=== PATIENT | male | born 1940 | race Two or more races ===

== ENCOUNTER 2023-01-25 13:45 | Inpatient (IN) | payer MEDICAID ==
[~2023-01-25] VITALS: Ht 170.2 cm; Wt 70.7 kg
[2023-01-25] VITALS (30 sets, daily range): BP systolic 100–136; BP diastolic 26–64; PULSE 102–121; RESP 21–30; TEMP 96.8–96.9; O2SAT 88–99
[2023-01-25] MEDS ORDERED: cefTRIAXone 1GM/50ML D5W 50 ML IV ONE (14:15)
[2023-01-25] MEDS ORDERED: SODIUM CHLORIDE 0.9% 1,000 ML IV ONE ×3 (14:15→15:15)
[2023-01-25] MEDS ORDERED: AZITHROMYCIN 500MG/ 250ML 250 ML IV ONE (14:15)
[2023-01-25 14:42] LABS: Mean Corpuscular Hgb Conc. 29.2 g/dL (32.0-36.0); Red Cell Distribution Width 17.4 % (11.8-14.3)
[2023-01-25 14:44] LABS: Hematocrit 56.5 % (41.0-53.0); Hemoglobin 16.5 g/dL (13.5-17.5); Mean Corpuscular Volume 99.3 fL (80.0-100.0); Red Blood Cells 5.69 10^6/uL (4.5-5.90)
[2023-01-25 14:45] LABS: White Blood Cell 31.7 10^3/uL (4.4-10.8)
[2023-01-25 14:46] LABS: Basophils % (manual) 0 (0.0-2.0); Blast Cells 0; Eosinophils % (manual) 0 (0-7); Metamyelocytes % 0; Myelocytes % 0; Promyelocytes % 0; Reactive Lymphocytes 0
[2023-01-25 14:58] LABS: Alanine Aminotransferase 12 U/L (7-40); Albumin 4.2 g/dL (3.2-4.8); Alkaline Phosphatase 113 U/L (46-116); Anion Gap 31.00001 (5-15); Aspartate Aminotransferase 12 U/L (13-40); BUN/Creatinine Ratio 15.8 (10.0-20.0); Bilirubin, Total 0.4 mg/dL (0.2-1.0); Blood Urea Nitrogen 72 mg/dL (9-23); Calcium 9.9 mg/dL (8.5-10.1); Chloride 100 mmol/L (98-107); Lactic Acid w/Reflex 6.8 mmol/L (0.4-2.0); Sodium 141 mmol/L (136-145); Total Protein 7.4 g/dL (5.7-8.2)
[2023-01-25 15:11] LABS: Carbon Dioxide < 10 mmol/L (20-30); Glucose 1023 mg/dL (74-106); Potassium 6.4 mmol/L (3.5-5.1)
[2023-01-25] MEDS ORDERED: DEXTROSE (50%) 50ML SYRG IV PRN (15:15)
[2023-01-25] MEDS ORDERED: SODIUM BICARBONATE 8.4% INJ 50ML SYRINGE IV ONE (15:15)
[2023-01-25] MEDS ORDERED: INSULIN LANTUS (GLARGINE) 1 /0.01ml (100units/ml) SC ONE (15:15)
[2023-01-25] MEDS ORDERED: FUROSEMIDE 20 MG/2 ML VIAL IV ONE (15:15)
[2023-01-25] MEDS ORDERED: CALCIUM GLUC 1,000mg/50ml-NS 50 ML IV ONE (15:15)
[2023-01-25] MEDS ORDERED: InsuLIN R (HUMAN) 100 UNITS in SODIUM CHL 0.9% 99 ML IV SCH (15:30)
[2023-01-25 15:38] LABS: Urine Bacteria MOD /hpf (None Seen); Urine Blood 3+ /uL (Negative); Urine Budding Yeast LOADED /hpf (None Seen); Urine Clarity CLOUDY (Clear); Urine Color Colorless (Yellow); Urine Protein, UAD 1+ (Negative); Urine Specific Gravity 1.014 (1.001-1.035); Urine Urobilinogen Normal (Negative); Urine WBC 146 /hpf (0 - 3); Urine pH 5.5 (5.0-8.0)
[2023-01-25 15:47] LABS: Anisocytosis Slight; Band Neutrophils % (manual) 28; Large Platelets FEW; Lymphocytes % (manual) 10 (10.0-50.0); Monocytes % (manual) 6 (0-12); Platelet Estimate Adequate
[2023-01-25] MEDS ORDERED: NITROGLYCERIN 0.4 MG SL TAB SL PRN (16:30)
[2023-01-25] MEDS ORDERED: MORPHINE SULFATE INJ 2 MG/ml SYRG IV PRN (16:30)
[2023-01-25] MEDS ORDERED: InsuLIN REG 1unit/0.01ml Soln (100units/ml) IV ONE (16:30)
[2023-01-25] MEDS: ACCU-CHEK COMFORT CURVE STRIP VI SCH ×6 (16:30→23:57)
[2023-01-25 17:30] LABS: Chloride 102 mmol/L (98-107); Sodium 143 mmol/L (136-145)
[2023-01-25 17:31] LABS: Anion Gap 31.00001 (5-15); Calcium 8.9 mg/dL (8.7-10.4)
[2023-01-25 17:36] LABS: BUN/Creatinine Ratio 16.6 (10.0-20.0); Blood Urea Nitrogen 76 mg/dL (9-23); Magnesium 3.6 mg/dL (1.6-2.6)
[2023-01-25 17:38] LABS: Phosphorus 10.4 mg/dL (2.4-5.1)
[2023-01-25] MEDS: SODIUM CHLORIDE 0.9% 1,000 ML IV SCH ×2 (18:35→20:42)
[2023-01-25 18:53] LABS: Carbon Dioxide < 10 mmol/L (20-30); Glucose 1019 mg/dL (74-106); Potassium 6.1 mmol/L (3.5-5.1)
[2023-01-25 18:54] LABS: Chloride 109 mmol/L (98-107); Potassium 4.4 mmol/L (3.5-5.1)
[2023-01-25 18:55] LABS: Anion Gap 29.00001 (5-15); Calcium 8.3 mg/dL (8.5-10.1)
[2023-01-25 19:00] LABS: BUN/Creatinine Ratio 14.6 (10.0-20.0)
[2023-01-25 19:13] LABS: Blood Urea Nitrogen 63 mg/dL (9-23); Sodium 148 mmol/L (136-145)
[2023-01-25 19:14] LABS: Carbon Dioxide < 10 mmol/L (20-30)
[2023-01-25 19:15] LABS: Glucose 895 mg/dL (74-106)
[2023-01-25] MEDS ORDERED: SODIUM CHLORIDE 0.9% 1,000 ML IV SCH ×2 (19:15→21:15)
[2023-01-25] MEDS: InsuLIN R (HUMAN) 100 UNITS in SODIUM CHL 0.9% 99 ML IV SCH (19:43)
[2023-01-25] MEDS: MEROPENEM 500MG IVPB 50 ML IV SCH (19:56)
[2023-01-25] MEDS: SOD CHL 0.45% 1,000 ML IV SCH ×2 (21:31→23:58)
[2023-01-25 22:30] LABS: Albumin 3.2 g/dL (3.2-4.8); Alkaline Phosphatase 104 U/L (46-116); Anion Gap 25 (5-15); Aspartate Aminotransferase 18 U/L (13-40); BUN/Creatinine Ratio 13.9 (10.0-20.0); Blood Urea Nitrogen 64 mg/dL (9-23); Calcium 8.4 mg/dL (8.7-10.4); Carbon Dioxide 14 mmol/L (20-30); Chloride 109 mmol/L (98-107); Magnesium 3.2 mg/dL (1.6-2.6); Potassium 3.7 mmol/L (3.5-5.1); Sodium 148 mmol/L (136-145)
[2023-01-25 22:31] LABS: Bilirubin, Total 0.2 mg/dL (0.2-1.0); Total Protein 5.8 g/dL (5.7-8.2)
[2023-01-25 22:42] LABS: Alanine Aminotransferase < 9 U/L (7-40)
[2023-01-25 22:43] LABS: Glucose 659 mg/dL (74-106)
[2023-01-25] MEDS: POTASSIUM CHL 20MEQ/100ML 100 ML IV SCH (23:58)
[2023-01-26] VITALS (101 sets, daily range): BP systolic 80–161; BP diastolic 39–117; PULSE 111–164; RESP 13–34; TEMP 97.7–99.1; O2SAT 91–100
[2023-01-26] MEDS: ACCU-CHEK COMFORT CURVE STRIP VI SCH ×16 (01:17→23:56)
[2023-01-26] MEDS: InsuLIN R (HUMAN) 100 UNITS in SODIUM CHL 0.9% 99 ML IV SCH ×2 (01:18→20:15)
[2023-01-26] MEDS: POTASSIUM CHL 20MEQ/100ML 100 ML IV SCH ×4 (01:34→23:55)
[2023-01-26] MEDS: PHENYLEPHRINE IV 250 ML IV SCH ×3 (02:10→18:09)
[2023-01-26] MEDS: SOD CHL 0.45% 1,000 ML IV SCH (04:22)
[2023-01-26 04:24] LABS: Chloride 111 mmol/L (98-107); Potassium 4.2 mmol/L (3.5-5.1); Sodium 149 mmol/L (136-145)
[2023-01-26] MEDS: MEROPENEM 500MG IVPB 50 ML IV SCH ×2 (04:24→16:57)
[2023-01-26 04:25] LABS: Anion Gap 18 (5-15); Calcium 8.2 mg/dL (8.7-10.4); Carbon Dioxide 20 mmol/L (20-30)
[2023-01-26 04:30] LABS: Blood Urea Nitrogen 69 mg/dL (9-23)
[2023-01-26 04:31] LABS: Magnesium 2.8 mg/dL (1.6-2.6)
[2023-01-26 04:33] LABS: Phosphorus 1.4 mg/dL (2.4-5.1)
[2023-01-26 04:48] LABS: Glucose 332 mg/dL (74-106)
[2023-01-26] MEDS: D5W/SOD CHL 0.45% 1,000 ML IV SCH ×5 (06:13→21:54)
[2023-01-26] MEDS ORDERED: POTASSIUM PHOSPHATE 22 MEQ in SODIUM CHL 0.9% 100 ML IV ONE (07:15)
[2023-01-26] MEDS ORDERED: ENOXAPARIN SOD 30 MG/0.3 ML SYRINGE SC SCH (10:00)
[2023-01-26] MEDS ORDERED: METOPROLOL TARTRATE 1MG/1ML-5ML VIAL IV ONE (10:15)
[2023-01-26 10:39] LABS: Basophils # (auto) 0 10 ^3/uL (0-0.2); Eosinophils # (auto) 0 10 ^3/uL (0-0.8); Eosinophils % (auto) 0.1 % (0.0-7.0); Lymphocytes % (auto) 6.7 % (10.0-50.0); Mean Corpuscular Hemoglobin 28.8 pg (28.0-32.0); Mean Corpuscular Hgb Conc. 33.4 g/dL (32.0-36.0); Mean Corpuscular Volume 86.1 fL (80.0-100.0); Monocytes # (auto) 0.6 10 ^3/uL (0-1.3); Monocytes % (auto) 4.2 % (0.0-12.0); Nucleated Red Blood Cells % 0.1 %; Red Blood Cells 4.53 10^6/uL (4.5-5.90); Red Cell Distribution Width 14.2 % (11.8-14.3); White Blood Cell 14.6 10^3/uL (4.4-10.8)
[2023-01-26] MEDS ORDERED: AMIODARONE BOLUS KIT 100 ML IV ONE (10:45)
[2023-01-26 10:58] LABS: Chloride 112 mmol/L (98-107); Potassium 3.8 mmol/L (3.5-5.1); Sodium 148 mmol/L (136-145)
[2023-01-26 10:59] LABS: Anion Gap 14 (5-15); Carbon Dioxide 22 mmol/L (20-30)
[2023-01-26] MEDS: INSULIN LANTUS (GLARGINE) 1 /0.01ml (100units/ml) SC SCH (10:59)
[2023-01-26 11:00] LABS: Calcium 7.9 mg/dL (8.7-10.4)
[2023-01-26] MEDS ORDERED: AMIODARONE 450mg/250ml AE 250 ML IV SCH ×2 (11:00→17:00)
[2023-01-26 11:05] LABS: BUN/Creatinine Ratio 14.7 (10.0-20.0); Blood Urea Nitrogen 67 mg/dL (9-23); Glucose 287 mg/dL (74-106)
[2023-01-26 11:56] LABS: Platelet Estimate Decreased
[2023-01-26 12:02] LABS: Giant Platelets Few
[2023-01-26] MEDS ORDERED: BUMETANIDE 2.5mg/10ml (0.25 mg/ml) INJ IV ONE (18:00)
[2023-01-26 19:01] LABS: Hematocrit 40.4 % (41.0-53.0); Hemoglobin 13.1 g/dL (13.5-17.5)
[2023-01-26 19:19] LABS: Anion Gap 13 (5-15); Carbon Dioxide 19 mmol/L (20-30); Chloride 113 mmol/L (98-107); Potassium 3.1 mmol/L (3.5-5.1); Sodium 145 mmol/L (136-145)
[2023-01-26 19:20] LABS: Calcium 7.2 mg/dL (8.7-10.4)
[2023-01-26 19:24] LABS: Glucose 245 mg/dL (74-106)
[2023-01-26 19:25] LABS: BUN/Creatinine Ratio 17.2 (10.0-20.0); Blood Urea Nitrogen 64 mg/dL (9-23)
[2023-01-26] MEDS ORDERED: POTASSIUM CHL 20MEQ/100ML 100 ML IV ONE (20:12)
[2023-01-26] MEDS: AMIODARONE 450mg/250ml AE 250 ML IV SCH (21:00)
[2023-01-27] VITALS (59 sets, daily range): BP systolic 84–179; BP diastolic 45–99; PULSE 89–136; RESP 11–23; TEMP 98–99.3; O2SAT 95–99
[2023-01-27] MEDS: AMIODARONE 450mg/250ml AE 250 ML IV SCH ×3 (01:46→19:30)
[2023-01-27] MEDS: ACCU-CHEK COMFORT CURVE STRIP VI SCH ×8 (01:48→18:03)
[2023-01-27] MEDS: PHENYLEPHRINE IV 250 ML IV SCH ×3 (03:00→19:40)
[2023-01-27 04:21] LABS: Hematocrit 40.3 % (41.0-53.0); Hemoglobin 13.6 g/dL (13.5-17.5); Mean Corpuscular Hgb Conc. 33.8 g/dL (32.0-36.0); Mean Corpuscular Volume 85.9 fL (80.0-100.0); Red Blood Cells 4.69 10^6/uL (4.5-5.90); Red Cell Distribution Width 14.5 % (11.8-14.3); White Blood Cell 23.2 10^3/uL (4.4-10.8)
[2023-01-27] MEDS: MEROPENEM 500MG IVPB 50 ML IV SCH ×2 (04:26→18:11)
[2023-01-27 04:31] LABS: Alanine Aminotransferase 18 U/L (7-40); Alkaline Phosphatase 90 U/L (46-116); Anion Gap 11 (5-15); Aspartate Aminotransferase 50 U/L (13-40); BUN/Creatinine Ratio 16.6 (10.0-20.0); Basophils % (manual) 0 (0.0-2.0); Bilirubin, Total 0.3 mg/dL (0.2-1.0); Blast Cells 0; Blood Urea Nitrogen 56 mg/dL (9-23); Calcium 7.3 mg/dL (8.7-10.4); Carbon Dioxide 20 mmol/L (20-30); Chloride 112 mmol/L (98-107); Glucose 249 mg/dL (74-106); Potassium 3.7 mmol/L (3.5-5.1); Promyelocytes % 0; Reactive Lymphocytes 0; Sodium 143 mmol/L (136-145); Total Protein 5.5 g/dL (5.7-8.2)
[2023-01-27] MEDS: POTASSIUM CHL 20MEQ/100ML 100 ML IV SCH ×2 (05:22→08:04)
[2023-01-27] MEDS: ONDANSETRON HCL 4 MG/2 ML VIAL IV PRN (05:22)
[2023-01-27 07:58] LABS: Band Neutrophils % (manual) 37; Eosinophils % (manual) 1 (0-7); Lymphocytes % (manual) 14 (10.0-50.0); Metamyelocytes % 1; Monocytes % (manual) 4 (0-12); Myelocytes % 2; Platelet Estimate Decreased
[2023-01-27] MEDS: INSULIN LANTUS (GLARGINE) 1 /0.01ml (100units/ml) SC SCH (09:43)
[2023-01-27] MEDS ORDERED: ENOXAPARIN SOD 60 MG/0.6 ML SYRINGE SC SCH (10:00)
[2023-01-27] MEDS: hydrALAZINE HCL 20 MG/ML VL IV PRN (11:15)
[2023-01-27] MEDS: InsuLIN REG 1unit/0.01ml Soln (100units/ml) SC SCH ×2 (11:59→18:02)
[2023-01-27 13:05] LABS: Chloride 113 mmol/L (98-107); Potassium 3.9 mmol/L (3.5-5.1); Sodium 141 mmol/L (136-145)
[2023-01-27 13:06] LABS: Anion Gap 11 (5-15); Calcium 7.1 mg/dL (8.5-10.1); Carbon Dioxide 17 mmol/L (20-30)
[2023-01-27 13:11] LABS: BUN/Creatinine Ratio 14.6 (10.0-20.0); Glucose 332 mg/dL (74-106)
[2023-01-27 13:18] LABS: Blood Urea Nitrogen 43 mg/dL (9-23)
[2023-01-27] MEDS ORDERED: POTASSIUM CHL 20MEQ/100ML 100 ML IV ONE (14:15)
[2023-01-27] MEDS ORDERED: ACETAMINOPHEN 650 MG RECT SUPP PR PRN (15:45)
[2023-01-27 17:53] LABS: Chloride 114 mmol/L (98-107); Potassium 4.1 mmol/L (3.5-5.1); Sodium 141 mmol/L (136-145)
[2023-01-27 17:54] LABS: Anion Gap 8 (5-15); Carbon Dioxide 19 mmol/L (20-30)
[2023-01-27 17:59] LABS: BUN/Creatinine Ratio 11.9 (10.0-20.0); Glucose 352 mg/dL (74-106)
[2023-01-27 18:16] LABS: Blood Urea Nitrogen 33 mg/dL (9-23)
[2023-01-27] MEDS: SOD CHL 0.45% 1,000 ML IV SCH (20:41)
[2023-01-28] VITALS (58 sets, daily range): BP systolic 129–184; BP diastolic 60–83; PULSE 81–97; RESP 8–19; TEMP 98.8–99.5; O2SAT 96–100
[2023-01-28] MEDS: ACCU-CHEK COMFORT CURVE STRIP VI SCH ×4 (00:13→18:33)
[2023-01-28] MEDS: InsuLIN REG 1unit/0.01ml Soln (100units/ml) SC SCH ×4 (00:19→18:42)
[2023-01-28] MEDS: hydrALAZINE HCL 20 MG/ML VL IV PRN (00:22)
[2023-01-28] MEDS: AMIODARONE 450mg/250ml AE 250 ML IV SCH ×3 (02:45→18:22)
[2023-01-28] MEDS: PHENYLEPHRINE IV 250 ML IV SCH ×2 (04:00→12:20)
[2023-01-28 04:30] LABS: Basophils # (auto) 0 10 ^3/uL (0-0.2); Eosinophils # (auto) 0.1 10 ^3/uL (0-0.8); Eosinophils % (auto) 0.3 % (0.0-7.0); Monocytes # (auto) 0.5 10 ^3/uL (0-1.3)
[2023-01-28 04:34] LABS: Hematocrit 38.1 % (41.0-53.0); Hemoglobin 12.6 g/dL (13.5-17.5); Lymphocytes # (auto) 1.6 10 ^3/uL (0.4-5.4); Lymphocytes % (auto) 6.5 % (10.0-50.0); Mean Corpuscular Hemoglobin 28.4 pg (28.0-32.0); Monocytes % (auto) 2.1 % (0.0-12.0); Neutrophils # (auto) 22.5 10 ^3/uL (1.6-8.6); Neutrophils % (auto) 91.1 % (37.0-80.0); Red Blood Cells 4.43 10^6/uL (4.5-5.90); Red Cell Distribution Width 14.8 % (11.8-14.3); White Blood Cell 24.7 10^3/uL (4.4-10.8)
[2023-01-28 04:46] LABS: Chloride 115 mmol/L (98-107); Potassium 3.5 mmol/L (3.5-5.1); Sodium 145 mmol/L (136-145)
[2023-01-28 04:47] LABS: Anion Gap 8 (5-15); Carbon Dioxide 22 mmol/L (20-30)
[2023-01-28 04:48] LABS: Calcium 7.3 mg/dL (8.7-10.4)
[2023-01-28 04:53] LABS: BUN/Creatinine Ratio 15.8 (10.0-20.0); Blood Urea Nitrogen 37 mg/dL (9-23)
[2023-01-28 05:14] LABS: Glucose 168 mg/dL (74-106)
[2023-01-28] MEDS: MEROPENEM 500MG IVPB 50 ML IV SCH ×2 (05:48→17:35)
[2023-01-28] MEDS ORDERED: HEPARIN SODIUM (PORCINE) 5000 UNITS/ML 1ML VIAL SC SCH (10:00)
[2023-01-28] MEDS: INSULIN LANTUS (GLARGINE) 1 /0.01ml (100units/ml) SC SCH (10:51)
[2023-01-28] MEDS: SOD CHL 0.45% 1,000 ML IV SCH ×2 (15:45→17:35)
[2023-01-29] VITALS (7 sets, daily range): BP systolic 102–154; BP diastolic 51–75; PULSE 74–84; RESP 14–19; TEMP 97.4–98.4; O2SAT 98–100
[2023-01-29] MEDS: ACCU-CHEK COMFORT CURVE STRIP VI SCH ×4 (00:18→17:37)
[2023-01-29] MEDS: AMIODARONE 450mg/250ml AE 250 ML IV SCH (01:47)
[2023-01-29] MEDS: MEROPENEM 500MG IVPB 50 ML IV SCH ×2 (05:36→17:36)
[2023-01-29] MEDS: InsuLIN REG 1unit/0.01ml Soln (100units/ml) SC SCH ×4 (05:46→17:36)
[2023-01-29 06:17] LABS: Basophils # (auto) 0 10 ^3/uL (0-0.2); Basophils % (auto) 0.2 % (0.0-2.0); Eosinophils # (auto) 0.1 10 ^3/uL (0-0.8); Eosinophils % (auto) 0.8 % (0.0-7.0); Hematocrit 40.2 % (41.0-53.0); Hemoglobin 13.2 g/dL (13.5-17.5); Lymphocytes # (auto) 1.9 10 ^3/uL (0.4-5.4); Lymphocytes % (auto) 10.8 % (10.0-50.0); Mean Corpuscular Hemoglobin 28.4 pg (28.0-32.0); Mean Corpuscular Hgb Conc. 32.8 g/dL (32.0-36.0); Mean Corpuscular Volume 86.6 fL (80.0-100.0); Monocytes # (auto) 0.8 10 ^3/uL (0-1.3); Monocytes % (auto) 4.4 % (0.0-12.0); Neutrophils # (auto) 14.8 10 ^3/uL (1.6-8.6); Neutrophils % (auto) 83.8 % (37.0-80.0); Nucleated Red Blood Cells % 0.1 %; Red Blood Cells 4.64 10^6/uL (4.5-5.90); Red Cell Distribution Width 15.4 % (11.8-14.3); White Blood Cell 17.7 10^3/uL (4.4-10.8)
[2023-01-29 06:19] LABS: Anion Gap 9 (5-15); Carbon Dioxide 20 mmol/L (20-30); Chloride 112 mmol/L (98-107); Potassium 3.4 mmol/L (3.5-5.1); Sodium 141 mmol/L (136-145)
[2023-01-29 06:21] LABS: Calcium 7.6 mg/dL (8.5-10.1)
[2023-01-29 06:25] LABS: Glucose 151 mg/dL (74-106)
[2023-01-29 06:26] LABS: BUN/Creatinine Ratio 9.9 (10.0-20.0); Blood Urea Nitrogen 16 mg/dL (9-23)
[2023-01-29 07:39] LABS: Platelet Estimate Decreased
[2023-01-29 07:40] LABS: RBC Morphology Normal
[2023-01-29] MEDS: INSULIN LANTUS (GLARGINE) 1 /0.01ml (100units/ml) SC SCH (09:20)
[2023-01-29] MEDS: SOD CHL 0.45% 1,000 ML IV SCH (10:57)
[2023-01-29] MEDS: AMIODARONE HCL 200 MG TAB PO SCH ×2 (10:57→22:30)
[2023-01-29] MEDS ORDERED: POTASSIUM CHL 20MEQ/100ML 100 ML IV ONE (11:45)
[2023-01-29] MEDS: hydrALAZINE HCL 20 MG/ML VL IV PRN (13:29)
[2023-01-29] MEDS: METOPROLOL TARTRATE 25 MG TAB PO SCH ×2 (13:38→22:30)
[2023-01-29] MEDS ORDERED: HYDROcodone-ACET 5/325MG TAB PO ONE (22:15)
[2023-01-30] MEDS: ACCU-CHEK COMFORT CURVE STRIP VI SCH ×4 (00:07→17:41)
[2023-01-30 04:49] VITALS: BP 146/68; PULSE 73; RESP 17; TEMP 97.8; O2SAT 98
[2023-01-30] MEDS: InsuLIN REG 1unit/0.01ml Soln (100units/ml) SC SCH ×4 (06:00→18:25)
[2023-01-30] MEDS: MEROPENEM 500MG IVPB 50 ML IV SCH ×2 (06:02→17:41)
[2023-01-30 06:13] LABS: Alanine Aminotransferase 39 U/L (7-40); Albumin 3.2 g/dL (3.2-4.8); Alkaline Phosphatase 182 U/L (46-116); Anion Gap 8 (5-15); Aspartate Aminotransferase 74 U/L (13-40); BUN/Creatinine Ratio 12.3 (10.0-20.0); Blood Urea Nitrogen 18 mg/dL (9-23); Calcium 7.9 mg/dL (8.7-10.4); Carbon Dioxide 20 mmol/L (20-30); Chloride 113 mmol/L (98-107); Glucose 82 mg/dL (74-106); Potassium 3.7 mmol/L (3.5-5.1); Sodium 141 mmol/L (136-145)
[2023-01-30 06:14] LABS: Bilirubin, Total 0.5 mg/dL (0.2-1.0); Total Protein 5.9 g/dL (5.7-8.2)
[2023-01-30 07:51] LABS: Hematocrit 37.1 % (41.0-53.0); Hemoglobin 12.1 g/dL (13.5-17.5); Mean Corpuscular Hgb Conc. 32.6 g/dL (32.0-36.0); Mean Corpuscular Volume 86.1 fL (80.0-100.0); Red Blood Cells 4.31 10^6/uL (4.5-5.90); Red Cell Distribution Width 15.2 % (11.8-14.3); White Blood Cell 12.2 10^3/uL (4.4-10.8)
[2023-01-30 08:00] VITALS: PULSE 71
[2023-01-30 08:11] LABS: Basophils % (manual) 0 (0.0-2.0); Blast Cells 0; Myelocytes % 0; Promyelocytes % 0; Reactive Lymphocytes 0
[2023-01-30 09:00] VITALS: BP 139/70; PULSE 69; RESP 16; TEMP 98.1; O2SAT 99
[2023-01-30 09:21] LABS: Band Neutrophils % (manual) 8; Eosinophils % (manual) 2 (0-7); Lymphocytes % (manual) 17 (10.0-50.0); Metamyelocytes % 4; Monocytes % (manual) 8 (0-12); Platelet Estimate Decreased
[2023-01-30] MEDS: INSULIN LANTUS (GLARGINE) 1 /0.01ml (100units/ml) SC SCH (11:00)
[2023-01-30] MEDS ORDERED: POTASSIUM PHOSPHATE 44 MEQ in D5W 5% 250 ML IV ONE (11:00)
[2023-01-30] MEDS: AMIODARONE HCL 200 MG TAB PO SCH ×2 (11:01→22:00)
[2023-01-30] MEDS: SOD CHL 0.45% 1,000 ML IV SCH (11:01)
[2023-01-30] MEDS: METOPROLOL TARTRATE 25 MG TAB PO SCH ×2 (11:01→22:00)
[2023-01-30] MEDS ORDERED: DEXTROSE (50%) 50ML SYRG IV SCH (11:30)
[2023-01-30] MEDS ORDERED: TPN PER PHARMACY 0 ML IV SCH (11:30)
[2023-01-30 12:08] LABS: Phosphorus 2.2 mg/dL (2.4-5.1)
[2023-01-30 13:00] VITALS: BP 141/73; PULSE 67; RESP 18; TEMP 97.5; O2SAT 100
[2023-01-30 17:00] VITALS: BP 149/69; PULSE 67; RESP 18; TEMP 97.4; O2SAT 99
[2023-01-30 20:00] VITALS: PULSE 67
[2023-01-30] MEDS ORDERED: TPN PER PHARMACY IV NR ×10 (20:00)
[2023-01-30] MEDS: hydrALAZINE HCL 20 MG/ML VL IV PRN (22:23)
[2023-01-31] VITALS (9 sets, daily range): BP systolic 144–180; BP diastolic 64–77; PULSE 62–80; RESP 17–20; TEMP 97.6–98.7; O2SAT 96–99
[2023-01-31] MEDS: ACCU-CHEK COMFORT CURVE STRIP VI SCH ×4 (01:14→18:04)
[2023-01-31] MEDS: InsuLIN REG 1unit/0.01ml Soln (100units/ml) SC SCH ×4 (01:21→18:04)
[2023-01-31] MEDS: MEROPENEM 500MG IVPB 50 ML IV SCH ×3 (05:53→20:07)
[2023-01-31] MEDS: hydrALAZINE HCL 20 MG/ML VL IV PRN ×2 (07:04→22:13)
[2023-01-31 09:02] LABS: Alanine Aminotransferase 31 U/L (7-40); Alkaline Phosphatase 140 U/L (46-116); Anion Gap 9 (5-15); BUN/Creatinine Ratio 13.2 (10.0-20.0); Blood Urea Nitrogen 17 mg/dL (9-23); Calcium 8.1 mg/dL (8.5-10.1); Carbon Dioxide 22 mmol/L (20-30); Chloride 108 mmol/L (98-107); Glucose 169 mg/dL (74-106); Potassium 3.5 mmol/L (3.5-5.1); Sodium 139 mmol/L (136-145)
[2023-01-31 09:03] LABS: Albumin 3.1 g/dL (3.2-4.8); Aspartate Aminotransferase 36 U/L (13-40); Bilirubin, Total 0.4 mg/dL (0.2-1.0); Phosphorus 2.7 mg/dL (2.4-5.1)
[2023-01-31] MEDS: AMIODARONE HCL 200 MG TAB PO SCH ×2 (09:45→22:12)
[2023-01-31] MEDS: METOPROLOL TARTRATE 25 MG TAB PO SCH ×2 (09:46→22:12)
[2023-01-31 11:01] LABS: Magnesium 1.7 mg/dL (1.6-2.6)
[2023-01-31] MEDS: FLUCONAZOLE 200MG/100ML 100 ML IV SCH ×2 (11:59→18:03)
[2023-01-31] MEDS: CALCITRIOL 0.25 MCG CAP PO SCH (18:03)
[2023-01-31] MEDS ORDERED: TPN PER PHARMACY IV NR ×11 (20:00)
[2023-02-01] VITALS (7 sets, daily range): BP systolic 121–141; BP diastolic 54–62; PULSE 66–87; RESP 18–19; TEMP 97.9–98.7; O2SAT 95–99
[2023-02-01] MEDS: InsuLIN REG 1unit/0.01ml Soln (100units/ml) SC SCH ×4 (00:32→17:44)
[2023-02-01] MEDS: SOD CHL 0.45% 1,000 ML IV SCH (01:24)
[2023-02-01] MEDS: ACCU-CHEK COMFORT CURVE STRIP VI SCH ×4 (06:04→17:36)
[2023-02-01] MEDS: MEROPENEM 500MG IVPB 50 ML IV SCH ×2 (06:04→17:35)
[2023-02-01] MEDS: hydrALAZINE HCL 20 MG/ML VL IV PRN (06:22)
[2023-02-01] MEDS: CALCITRIOL 0.25 MCG CAP PO SCH (10:00)
[2023-02-01 10:01] LABS: Basophils # (auto) 0 10 ^3/uL (0-0.2); Basophils % (auto) 0.1 % (0.0-2.0); Eosinophils # (auto) 0.1 10 ^3/uL (0-0.8); Eosinophils % (auto) 0.9 % (0.0-7.0); Hematocrit 35.6 % (41.0-53.0); Hemoglobin 11.7 g/dL (13.5-17.5); Lymphocytes # (auto) 2.2 10 ^3/uL (0.4-5.4); Lymphocytes % (auto) 16.9 % (10.0-50.0); Mean Corpuscular Hemoglobin 28.4 pg (28.0-32.0); Mean Corpuscular Hgb Conc. 32.8 g/dL (32.0-36.0); Mean Corpuscular Volume 86.5 fL (80.0-100.0); Monocytes # (auto) 1.3 10 ^3/uL (0-1.3); Monocytes % (auto) 10.1 % (0.0-12.0); Neutrophils # (auto) 9.3 10 ^3/uL (1.6-8.6); Red Blood Cells 4.11 10^6/uL (4.5-5.90); Red Cell Distribution Width 14.6 % (11.8-14.3); White Blood Cell 12.9 10^3/uL (4.4-10.8)
[2023-02-01 10:17] LABS: Alanine Aminotransferase 25 U/L (7-40); Alkaline Phosphatase 117 U/L (46-116); Anion Gap 7 (5-15); Aspartate Aminotransferase 29 U/L (13-40); BUN/Creatinine Ratio 12.9 (10.0-20.0); Bilirubin, Total 0.3 mg/dL (0.2-1.0); Blood Urea Nitrogen 15 mg/dL (9-23); Calcium 8.3 mg/dL (8.5-10.1); Carbon Dioxide 23 mmol/L (20-30); Chloride 105 mmol/L (98-107); Glucose 262 mg/dL (74-106); Phosphorus 2.7 mg/dL (2.4-5.1); Potassium 3.3 mmol/L (3.5-5.1); Sodium 135 mmol/L (136-145); Total Protein 5.8 g/dL (5.7-8.2)
[2023-02-01 10:30] LABS: Magnesium 1.8 mg/dL (1.6-2.6)
[2023-02-01] MEDS: FLUCONAZOLE 200MG/100ML 100 ML IV SCH (10:52)
[2023-02-01] MEDS: amLODIPine BESYLATE 5 MG TAB PO SCH (10:52)
[2023-02-01] MEDS: AMIODARONE HCL 200 MG TAB PO SCH ×2 (10:53→21:37)
[2023-02-01] MEDS: METOPROLOL TARTRATE 25 MG TAB PO SCH ×2 (10:53→21:37)
[2023-02-01] MEDS ORDERED: POTASSIUM EFFERVESENT TAB 25 MEQ PO ONE (11:15)
[2023-02-01] MEDS: ONDANSETRON HCL 4 MG/2 ML VIAL IV PRN (12:48)
[2023-02-01] MEDS ORDERED: TPN PER PHARMACY IV NR ×11 (20:00)
[2023-02-01] MEDS: HEPARIN SODIUM (PORCINE) 5000 UNITS/ML 1ML VIAL SC SCH (21:39)
[2023-02-02] VITALS (7 sets, daily range): BP systolic 122–167; BP diastolic 49–65; PULSE 62–78; RESP 17–18; TEMP 97.3–98.2; O2SAT 94–98
[2023-02-02] MEDS: InsuLIN REG 1unit/0.01ml Soln (100units/ml) SC SCH ×4 (00:39→17:45)
[2023-02-02] MEDS: hydrALAZINE HCL 20 MG/ML VL IV PRN (04:22)
[2023-02-02] MEDS: ACCU-CHEK COMFORT CURVE STRIP VI SCH ×4 (06:00→17:43)
[2023-02-02] MEDS: MEROPENEM 1GM IVPB 100 ML IV SCH ×2 (06:09→17:12)
[2023-02-02 07:02] LABS: Alanine Aminotransferase 22 U/L (7-40); Alkaline Phosphatase 114 U/L (46-116)
[2023-02-02 07:03] LABS: Anion Gap 8 (5-15); Aspartate Aminotransferase 29 U/L (13-40); BUN/Creatinine Ratio 14.3 (10.0-20.0); Bilirubin, Total 0.2 mg/dL (0.2-1.0); Blood Urea Nitrogen 17 mg/dL (9-23); Calcium 8.4 mg/dL (8.7-10.4); Carbon Dioxide 23 mmol/L (20-30); Chloride 106 mmol/L (98-107); Magnesium 1.9 mg/dL (1.6-2.6); Phosphorus 3.5 mg/dL (2.4-5.1); Potassium 3.8 mmol/L (3.5-5.1); Sodium 137 mmol/L (136-145); Total Protein 5.7 g/dL (5.7-8.2)
[2023-02-02 07:08] LABS: Glucose 141 mg/dL (74-106)
[2023-02-02 10:22] LABS: Basophils # (auto) 0 10 ^3/uL (0-0.2); Basophils % (auto) 0.2 % (0.0-2.0); Eosinophils # (auto) 0.1 10 ^3/uL (0-0.8); Eosinophils % (auto) 0.8 % (0.0-7.0); Hemoglobin 10.9 g/dL (13.5-17.5); Lymphocytes # (auto) 1.7 10 ^3/uL (0.4-5.4); Lymphocytes % (auto) 10.3 % (10.0-50.0); Mean Corpuscular Hemoglobin 28.4 pg (28.0-32.0); Mean Corpuscular Volume 85.9 fL (80.0-100.0); Monocytes % (auto) 6.3 % (0.0-12.0); Neutrophils # (auto) 13.7 10 ^3/uL (1.6-8.6); Neutrophils % (auto) 82.4 % (37.0-80.0); Red Blood Cells 3.84 10^6/uL (4.5-5.90); Red Cell Distribution Width 14.9 % (11.8-14.3); White Blood Cell 16.6 10^3/uL (4.4-10.8)
[2023-02-02] MEDS: METOPROLOL TARTRATE 25 MG TAB PO SCH ×2 (11:25→22:28)
[2023-02-02] MEDS: amLODIPine BESYLATE 5 MG TAB PO SCH (11:25)
[2023-02-02] MEDS: FLUCONAZOLE 200MG/100ML 100 ML IV SCH (11:26)
[2023-02-02] MEDS: CALCITRIOL 0.25 MCG CAP PO SCH (11:26)
[2023-02-02] MEDS: AMIODARONE HCL 200 MG TAB PO SCH ×2 (11:28→22:28)
[2023-02-02] MEDS: HEPARIN SODIUM (PORCINE) 5000 UNITS/ML 1ML VIAL SC SCH ×2 (11:32→22:34)
[2023-02-02] MEDS ORDERED: TPN PER PHARMACY IV NR ×12 (20:00)
[2023-02-03] VITALS (8 sets, daily range): BP systolic 125–144; BP diastolic 51–63; PULSE 63–69; RESP 13–19; TEMP 97.3–99.1; O2SAT 95–97
[2023-02-03] MEDS: ACCU-CHEK COMFORT CURVE STRIP VI SCH ×4 (00:07→18:16)
[2023-02-03] MEDS: InsuLIN REG 1unit/0.01ml Soln (100units/ml) SC SCH ×4 (00:07→18:15)
[2023-02-03] MEDS: MEROPENEM 1GM IVPB 100 ML IV SCH ×2 (05:33→18:14)
[2023-02-03] MEDS ORDERED: HEPARIN SODIUM (PORCINE) 5000 UNITS/ML 1ML VIAL ONE (11:18)
[2023-02-03] MEDS: FLUCONAZOLE 200MG/100ML 100 ML IV SCH (11:24)
[2023-02-03] MEDS: AMIODARONE HCL 200 MG TAB PO SCH ×2 (11:24→22:22)
[2023-02-03] MEDS: CALCITRIOL 0.25 MCG CAP PO SCH (11:25)
[2023-02-03] MEDS: METOPROLOL TARTRATE 25 MG TAB PO SCH ×2 (11:25→22:24)
[2023-02-03] MEDS: amLODIPine BESYLATE 5 MG TAB PO SCH (11:25)
[2023-02-03] MEDS: HEPARIN SODIUM (PORCINE) 5000 UNITS/ML 1ML VIAL SC SCH ×2 (11:27→22:38)
[2023-02-03 11:29] LABS: Calcium 8.4 mg/dL (8.5-10.1)
[2023-02-03 11:35] LABS: Albumin 2.9 g/dL (3.2-4.8)
[2023-02-03 12:31] LABS: Magnesium 2.2 mg/dL (1.6-2.6)
[2023-02-03 12:32] LABS: Phosphorus 2.8 mg/dL (2.4-5.1)
[2023-02-03] MEDS ORDERED: TPN PER PHARMACY IV NR ×12 (20:00)
[2023-02-04] MEDS: InsuLIN REG 1unit/0.01ml Soln (100units/ml) SC SCH ×4 (00:10→18:13)
[2023-02-04] MEDS: ACCU-CHEK COMFORT CURVE STRIP VI SCH ×4 (00:10→18:10)
[2023-02-04 05:00] VITALS: BP 133/54; PULSE 64; RESP 16; TEMP 98.2; O2SAT 96
[2023-02-04] MEDS: MEROPENEM 1GM IVPB 100 ML IV SCH ×2 (06:09→17:51)
[2023-02-04 08:00] VITALS: PULSE 62; RESP 18
[2023-02-04 09:00] VITALS: BP 114/68; PULSE 62; RESP 18; TEMP 98.4; O2SAT 94
[2023-02-04 09:22] LABS: Alanine Aminotransferase 29 U/L (7-40); Alkaline Phosphatase 95 U/L (46-116); Calcium 9.1 mg/dL (8.5-10.1); Carbon Dioxide 26 mmol/L (20-30); Chloride 103 mmol/L (98-107); Triglycerides 135 mg/dL (< 150)
[2023-02-04 09:23] LABS: Albumin 3.2 g/dL (3.2-4.8); Anion Gap 6 (5-15); Aspartate Aminotransferase 35 U/L (13-40); BUN/Creatinine Ratio 20.7 (10.0-20.0); Bilirubin, Total 0.2 mg/dL (0.2-1.0); Glucose 188 mg/dL (74-106); Phosphorus 3.2 mg/dL (2.4-5.1); Potassium 4.1 mmol/L (3.5-5.1); Sodium 135 mmol/L (136-145); Total Protein 6.5 g/dL (5.7-8.2)
[2023-02-04 09:25] LABS: Blood Urea Nitrogen 29 mg/dL (9-23)
[2023-02-04 09:54] LABS: Magnesium 2.5 mg/dL (1.6-2.6)
[2023-02-04] MEDS: AMIODARONE HCL 200 MG TAB PO SCH ×2 (10:34→22:31)
[2023-02-04] MEDS: CALCITRIOL 0.25 MCG CAP PO SCH (10:35)
[2023-02-04] MEDS: amLODIPine BESYLATE 5 MG TAB PO SCH (10:35)
[2023-02-04] MEDS: METOPROLOL TARTRATE 25 MG TAB PO SCH ×2 (10:35→22:32)
[2023-02-04] MEDS: HEPARIN SODIUM (PORCINE) 5000 UNITS/ML 1ML VIAL SC SCH ×2 (10:36→22:32)
[2023-02-04 13:00] VITALS: BP 136/58; PULSE 68; RESP 19; TEMP 98.4; O2SAT 94
[2023-02-04 17:00] VITALS: BP 134/54; PULSE 63; RESP 18; TEMP 98.4; O2SAT 96
[2023-02-04 20:00] VITALS: PULSE 63; RESP 18
[2023-02-04] MEDS ORDERED: TPN PER PHARMACY IV NR ×11 (20:00)
[2023-02-05] VITALS (7 sets, daily range): BP systolic 113–135; BP diastolic 54–75; PULSE 64–69; RESP 15–16; TEMP 97.7–98.5; O2SAT 97–100
[2023-02-05] MEDS: InsuLIN REG 1unit/0.01ml Soln (100units/ml) SC SCH ×4 (00:25→18:06)
[2023-02-05] MEDS: ACCU-CHEK COMFORT CURVE STRIP VI SCH ×4 (00:26→17:50)
[2023-02-05 05:43] LABS: Alanine Aminotransferase 65 U/L (7-40); Alkaline Phosphatase 114 U/L (46-116); Anion Gap 7 (5-15); Blood Urea Nitrogen 25 mg/dL (9-23); Calcium 9.6 mg/dL (8.5-10.1); Carbon Dioxide 24 mmol/L (20-30); Chloride 103 mmol/L (98-107); Glucose 232 mg/dL (74-106); Potassium 4.4 mmol/L (3.5-5.1); Sodium 134 mmol/L (136-145)
[2023-02-05 05:44] LABS: Albumin 3.3 g/dL (3.2-4.8); Aspartate Aminotransferase 100 U/L (13-40); Bilirubin, Total 0.2 mg/dL (0.2-1.0); Phosphorus 3.5 mg/dL (2.4-5.1); Total Protein 6.8 g/dL (5.7-8.2)
[2023-02-05] MEDS: MEROPENEM 1GM IVPB 100 ML IV SCH ×2 (06:09→10:25)
[2023-02-05 06:36] LABS: Magnesium 2.3 mg/dL (1.6-2.6)
[2023-02-05] MEDS: METOPROLOL TARTRATE 25 MG TAB PO SCH ×2 (09:43→22:16)
[2023-02-05] MEDS: CALCITRIOL 0.25 MCG CAP PO SCH (09:44)
[2023-02-05] MEDS: amLODIPine BESYLATE 5 MG TAB PO SCH (09:44)
[2023-02-05] MEDS: AMIODARONE HCL 200 MG TAB PO SCH ×2 (09:44→22:16)
[2023-02-05] MEDS: HEPARIN SODIUM (PORCINE) 5000 UNITS/ML 1ML VIAL SC SCH ×2 (09:49→22:18)
[2023-02-06] VITALS (7 sets, daily range): BP systolic 102–124; BP diastolic 53–65; PULSE 65–70; RESP 15–17; TEMP 97.5–98.5; O2SAT 95–98
[2023-02-06] MEDS: MEROPENEM 1GM IVPB 100 ML IV SCH ×2 (05:42→18:53)
[2023-02-06] MEDS: ACCU-CHEK COMFORT CURVE STRIP VI SCH ×3 (05:42→12:00)
[2023-02-06] MEDS: InsuLIN REG 1unit/0.01ml Soln (100units/ml) SC SCH ×4 (06:25→18:00)
[2023-02-06] MEDS: METOPROLOL TARTRATE 25 MG TAB PO SCH ×2 (09:58→22:32)
[2023-02-06] MEDS: CALCITRIOL 0.25 MCG CAP PO SCH (09:58)
[2023-02-06] MEDS: amLODIPine BESYLATE 5 MG TAB PO SCH (09:59)
[2023-02-06] MEDS: AMIODARONE HCL 200 MG TAB PO SCH ×2 (09:59→22:31)
[2023-02-06 13:22] LABS: Basophils # (auto) 0.1 10 ^3/uL (0-0.2); Basophils % (auto) 0.3 % (0.0-2.0); Eosinophils # (auto) 0 10 ^3/uL (0-0.8); Eosinophils % (auto) 0.1 % (0.0-7.0); Hematocrit 34.1 % (41.0-53.0); Hemoglobin 11.1 g/dL (13.5-17.5); Lymphocytes # (auto) 2.8 10 ^3/uL (0.4-5.4); Lymphocytes % (auto) 12.8 % (10.0-50.0); Mean Corpuscular Hemoglobin 28.2 pg (28.0-32.0); Mean Corpuscular Hgb Conc. 32.6 g/dL (32.0-36.0); Mean Corpuscular Volume 86.5 fL (80.0-100.0); Monocytes # (auto) 1.3 10 ^3/uL (0-1.3); Neutrophils # (auto) 17.7 10 ^3/uL (1.6-8.6); Neutrophils % (auto) 80.8 % (37.0-80.0); Red Blood Cells 3.95 10^6/uL (4.5-5.90); Red Cell Distribution Width 14.7 % (11.8-14.3); White Blood Cell 21.9 10^3/uL (4.4-10.8)
[2023-02-06] MEDS: SOD CHL 0.45% 1,000 ML IV SCH (14:41)
[2023-02-06] MEDS: HEPARIN SODIUM (PORCINE) 5000 UNITS/ML 1ML VIAL SC SCH ×2 (15:54→22:33)
[2023-02-07] VITALS (7 sets, daily range): BP systolic 112–136; BP diastolic 48–66; PULSE 63–66; RESP 16–20; TEMP 97.7–98.7; O2SAT 94–100
[2023-02-07] MEDS: ACCU-CHEK COMFORT CURVE STRIP VI SCH ×5 (00:16→23:13)
[2023-02-07] MEDS: InsuLIN REG 1unit/0.01ml Soln (100units/ml) SC SCH ×5 (00:19→23:14)
[2023-02-07] MEDS: SOD CHL 0.45% 1,000 ML IV SCH (05:09)
[2023-02-07] MEDS: MEROPENEM 1GM IVPB 100 ML IV SCH ×2 (05:49→17:59)
[2023-02-07 06:19] LABS: Basophils # (auto) 0.1 10 ^3/uL (0-0.2); Basophils % (auto) 0.3 % (0.0-2.0); Eosinophils # (auto) 0 10 ^3/uL (0-0.8); Eosinophils % (auto) 0.2 % (0.0-7.0); Hematocrit 33.3 % (41.0-53.0); Hemoglobin 10.9 g/dL (13.5-17.5); Lymphocytes # (auto) 2.9 10 ^3/uL (0.4-5.4); Lymphocytes % (auto) 16.1 % (10.0-50.0); Mean Corpuscular Hemoglobin 28.5 pg (28.0-32.0); Mean Corpuscular Hgb Conc. 32.7 g/dL (32.0-36.0); Mean Corpuscular Volume 87.3 fL (80.0-100.0); Monocytes # (auto) 1.5 10 ^3/uL (0-1.3); Monocytes % (auto) 8.7 % (0.0-12.0); Neutrophils # (auto) 13.3 10 ^3/uL (1.6-8.6); Neutrophils % (auto) 74.7 % (37.0-80.0); Nucleated Red Blood Cells % 0.1 %; Red Blood Cells 3.82 10^6/uL (4.5-5.90); Red Cell Distribution Width 14.6 % (11.8-14.3); White Blood Cell 17.8 10^3/uL (4.4-10.8)
[2023-02-07 06:30] LABS: Anion Gap 6 (5-15); Carbon Dioxide 21 mmol/L (20-30); Chloride 106 mmol/L (98-107); Sodium 133 mmol/L (136-145)
[2023-02-07 06:31] LABS: Calcium 9.2 mg/dL (8.5-10.1)
[2023-02-07 06:36] LABS: BUN/Creatinine Ratio 11.8 (10.0-20.0); Blood Urea Nitrogen 17 mg/dL (9-23)
[2023-02-07 06:40] LABS: Glucose 112 mg/dL (74-106)
[2023-02-07] MEDS: CALCITRIOL 0.25 MCG CAP PO SCH (10:33)
[2023-02-07] MEDS: AMIODARONE HCL 200 MG TAB PO SCH ×2 (10:33→21:09)
[2023-02-07] MEDS: METOPROLOL TARTRATE 25 MG TAB PO SCH ×2 (10:34→21:09)
[2023-02-07] MEDS: amLODIPine BESYLATE 5 MG TAB PO SCH (10:35)
[2023-02-07] MEDS: HEPARIN SODIUM (PORCINE) 5000 UNITS/ML 1ML VIAL SC SCH ×2 (10:41→21:10)
[2023-02-08 08:30] VITALS: PULSE 63; RESP 16; O2SAT 97
[2023-02-08] MEDS: METOPROLOL TARTRATE 25 MG TAB PO SCH ×2 (10:00→21:24)
[2023-02-08] MEDS: AMIODARONE HCL 200 MG TAB PO SCH ×3 (10:00→21:26)
[2023-02-08] MEDS: CALCITRIOL 0.25 MCG CAP PO SCH (10:00)
[2023-02-08] MEDS: amLODIPine BESYLATE 5 MG TAB PO SCH (10:00)
[2023-02-08] MEDS: HEPARIN SODIUM (PORCINE) 5000 UNITS/ML 1ML VIAL SC SCH ×2 (10:00→21:19)
[2023-02-08 11:20] LABS: Anion Gap 7 (5-15); BUN/Creatinine Ratio 12.8 (10.0-20.0); Blood Urea Nitrogen 19 mg/dL (9-23); Carbon Dioxide 22 mmol/L (20-30); Chloride 104 mmol/L (98-107); Glucose 120 mg/dL (74-106); Potassium 3.7 mmol/L (3.5-5.1); Sodium 133 mmol/L (136-145)
[2023-02-08] MEDS ORDERED: DEXTROSE (50%) 50ML SYRG IV PRN (11:45)
[2023-02-08 14:51] LABS: Basophils # (auto) 0.2 10 ^3/uL (0-0.2); Basophils % (auto) 1.2 % (0.0-2.0); Eosinophils # (auto) 0.1 10 ^3/uL (0-0.8); Eosinophils % (auto) 0.4 % (0.0-7.0); Hematocrit 31.5 % (41.0-53.0); Hemoglobin 10.1 g/dL (13.5-17.5); Lymphocytes # (auto) 3.2 10 ^3/uL (0.4-5.4); Lymphocytes % (auto) 21.8 % (10.0-50.0); Mean Corpuscular Hgb Conc. 32.1 g/dL (32.0-36.0); Mean Corpuscular Volume 87.4 fL (80.0-100.0); Monocytes # (auto) 1.3 10 ^3/uL (0-1.3); Neutrophils # (auto) 9.8 10 ^3/uL (1.6-8.6); Neutrophils % (auto) 67.6 % (37.0-80.0); Nucleated Red Blood Cells % 0.6 %; Red Blood Cells 3.61 10^6/uL (4.5-5.90); Red Cell Distribution Width 14.8 % (11.8-14.3); White Blood Cell 14.5 10^3/uL (4.4-10.8)
[2023-02-08 16:00] VITALS: BP 129/51; PULSE 60; RESP 18; TEMP 98.9; O2SAT 100
[2023-02-08] MEDS: SODIUM CHLORIDE 0.9% 1,000 ML IV SCH (16:02)
[2023-02-08] MEDS: MEROPENEM 1GM IVPB 100 ML IV SCH ×2 (18:00→18:06)
[2023-02-08] MEDS: ACCU-CHEK COMFORT CURVE STRIP VI SCH ×2 (18:05→22:00)
[2023-02-08] MEDS: InsuLIN REG 1unit/0.01ml Soln (100units/ml) SC SCH ×2 (18:17→21:15)
[2023-02-08 20:00] VITALS: RESP 16; O2SAT 97
[2023-02-08 22:00] VITALS: BP 114/51; PULSE 66; RESP 18; TEMP 97.9; O2SAT 97
[2023-02-09] VITALS (7 sets, daily range): BP systolic 124–133; BP diastolic 54–76; PULSE 64–77; RESP 17–20; TEMP 97.9–99.2; O2SAT 96–99
[2023-02-09] MEDS: SODIUM CHLORIDE 0.9% 1,000 ML IV SCH ×2 (04:25→21:05)
[2023-02-09] MEDS: MEROPENEM 1GM IVPB 100 ML IV SCH ×2 (04:34→18:14)
[2023-02-09] MEDS: InsuLIN REG 1unit/0.01ml Soln (100units/ml) SC SCH ×4 (05:59→22:05)
[2023-02-09] MEDS: ACCU-CHEK COMFORT CURVE STRIP VI SCH ×4 (06:03→22:13)
[2023-02-09 06:31] LABS: Anion Gap 11 (5-15); Carbon Dioxide 18 mmol/L (20-30); Chloride 106 mmol/L (98-107); Potassium 3.6 mmol/L (3.5-5.1); Sodium 135 mmol/L (136-145)
[2023-02-09 06:33] LABS: Calcium 9.2 mg/dL (8.5-10.1)
[2023-02-09 06:37] LABS: BUN/Creatinine Ratio 9.2 (10.0-20.0); Blood Urea Nitrogen 13 mg/dL (9-23); Glucose 159 mg/dL (74-106)
[2023-02-09 06:47] LABS: Basophils # (auto) 0.1 10 ^3/uL (0-0.2); Basophils % (auto) 0.5 % (0.0-2.0); Eosinophils # (auto) 0.1 10 ^3/uL (0-0.8); Eosinophils % (auto) 0.5 % (0.0-7.0); Hematocrit 34.1 % (41.0-53.0); Hemoglobin 11.2 g/dL (13.5-17.5); Lymphocytes # (auto) 3.2 10 ^3/uL (0.4-5.4); Lymphocytes % (auto) 22.4 % (10.0-50.0); Mean Corpuscular Hemoglobin 28.8 pg (28.0-32.0); Mean Corpuscular Hgb Conc. 32.9 g/dL (32.0-36.0); Mean Corpuscular Volume 87.3 fL (80.0-100.0); Monocytes # (auto) 1.1 10 ^3/uL (0-1.3); Monocytes % (auto) 7.6 % (0.0-12.0); Red Blood Cells 3.91 10^6/uL (4.5-5.90); Red Cell Distribution Width 14.4 % (11.8-14.3); White Blood Cell 14.5 10^3/uL (4.4-10.8)
[2023-02-09 08:34] LABS: Erythrocyte Sedimentation Rate 91 mm/hr (0-20)
[2023-02-09] MEDS: HEPARIN SODIUM (PORCINE) 5000 UNITS/ML 1ML VIAL SC SCH ×2 (11:32→22:06)
[2023-02-09] MEDS: CALCITRIOL 0.25 MCG CAP PO SCH (11:44)
[2023-02-09] MEDS: METOPROLOL TARTRATE 25 MG TAB PO SCH ×2 (11:48→22:08)
[2023-02-09] MEDS: AMIODARONE HCL 200 MG TAB PO SCH ×2 (11:48→22:08)
[2023-02-09] MEDS ORDERED: SORE THROAT SPRAY 6OZ BOTTLE MT PRN (12:00)
[2023-02-10] VITALS (7 sets, daily range): BP systolic 103–126; BP diastolic 42–56; PULSE 54–67; RESP 14–18; TEMP 97.2–98.7; O2SAT 95–100
[2023-02-10] MEDS: MEROPENEM 1GM IVPB 100 ML IV SCH (04:00)
[2023-02-10] MEDS: InsuLIN REG 1unit/0.01ml Soln (100units/ml) SC SCH ×4 (06:05→21:58)
[2023-02-10 06:22] LABS: Basophils # (auto) 0.1 10 ^3/uL (0-0.2); Basophils % (auto) 1.2 % (0.0-2.0); Eosinophils # (auto) 0.1 10 ^3/uL (0-0.8); Eosinophils % (auto) 0.7 % (0.0-7.0); Hematocrit 32.5 % (41.0-53.0); Hemoglobin 10.9 g/dL (13.5-17.5); Lymphocytes # (auto) 2.9 10 ^3/uL (0.4-5.4); Lymphocytes % (auto) 26.6 % (10.0-50.0); Mean Corpuscular Hgb Conc. 33.4 g/dL (32.0-36.0); Monocytes # (auto) 0.8 10 ^3/uL (0-1.3); Monocytes % (auto) 7.7 % (0.0-12.0); Neutrophils % (auto) 63.8 % (37.0-80.0); Nucleated Red Blood Cells % 0.1 %; Red Blood Cells 3.74 10^6/uL (4.5-5.90); Red Cell Distribution Width 14.4 % (11.8-14.3); White Blood Cell 10.9 10^3/uL (4.4-10.8)
[2023-02-10 06:25] LABS: Anion Gap 9 (5-15); Calcium 9.3 mg/dL (8.7-10.4); Carbon Dioxide 21 mmol/L (20-30); Chloride 108 mmol/L (98-107); Potassium 3.6 mmol/L (3.5-5.1); Sodium 138 mmol/L (136-145)
[2023-02-10 06:31] LABS: BUN/Creatinine Ratio 12.1 (10.0-20.0); Blood Urea Nitrogen 18 mg/dL (9-23); Glucose 171 mg/dL (74-106)
[2023-02-10] MEDS: ACCU-CHEK COMFORT CURVE STRIP VI SCH ×4 (06:55→21:56)
[2023-02-10] MEDS: METOPROLOL TARTRATE 25 MG TAB PO SCH ×2 (10:51→21:46)
[2023-02-10] MEDS: AMIODARONE HCL 200 MG TAB PO SCH ×2 (10:52→21:46)
[2023-02-10] MEDS: HEPARIN SODIUM (PORCINE) 5000 UNITS/ML 1ML VIAL SC SCH ×2 (10:57→21:44)
[2023-02-10] MEDS: SODIUM CHLORIDE 0.9% 1,000 ML IV SCH (16:46)
[2023-02-11] VITALS (7 sets, daily range): BP systolic 117–139; BP diastolic 51–64; PULSE 59–68; RESP 16–20; TEMP 97.7–98.3; O2SAT 98–100
[2023-02-11 06:12] LABS: Basophils # (auto) 0.1 10 ^3/uL (0-0.2); Basophils % (auto) 0.6 % (0.0-2.0); Eosinophils # (auto) 0.1 10 ^3/uL (0-0.8); Eosinophils % (auto) 1.4 % (0.0-7.0); Hematocrit 34.3 % (41.0-53.0); Hemoglobin 11.3 g/dL (13.5-17.5); Lymphocytes # (auto) 3.2 10 ^3/uL (0.4-5.4); Lymphocytes % (auto) 32.6 % (10.0-50.0); Mean Corpuscular Hemoglobin 28.6 pg (28.0-32.0); Mean Corpuscular Volume 86.8 fL (80.0-100.0); Monocytes # (auto) 0.8 10 ^3/uL (0-1.3); Neutrophils # (auto) 5.7 10 ^3/uL (1.6-8.6); Neutrophils % (auto) 57.4 % (37.0-80.0); Nucleated Red Blood Cells % 0.1 %; Red Blood Cells 3.95 10^6/uL (4.5-5.90); Red Cell Distribution Width 13.9 % (11.8-14.3)
[2023-02-11] MEDS: InsuLIN REG 1unit/0.01ml Soln (100units/ml) SC SCH ×4 (06:14→21:35)
[2023-02-11] MEDS: ACCU-CHEK COMFORT CURVE STRIP VI SCH ×4 (06:15→21:34)
[2023-02-11] MEDS: SODIUM CHLORIDE 0.9% 1,000 ML IV SCH ×2 (06:16→22:38)
[2023-02-11 06:22] LABS: Anion Gap 8 (5-15); Calcium 9.1 mg/dL (8.7-10.4); Carbon Dioxide 21 mmol/L (20-30); Chloride 108 mmol/L (98-107); Potassium 3.5 mmol/L (3.5-5.1); Sodium 137 mmol/L (136-145)
[2023-02-11 06:27] LABS: BUN/Creatinine Ratio 10.2 (10.0-20.0); Blood Urea Nitrogen 14 mg/dL (9-23); Glucose 174 mg/dL (74-106)
[2023-02-11] MEDS: METOPROLOL TARTRATE 25 MG TAB PO SCH ×2 (09:47→21:26)
[2023-02-11] MEDS: AMIODARONE HCL 200 MG TAB PO SCH ×2 (10:01→21:25)
[2023-02-11] MEDS: HEPARIN SODIUM (PORCINE) 5000 UNITS/ML 1ML VIAL SC SCH ×2 (10:08→21:34)
[2023-02-12 05:00] VITALS: BP 135/54; PULSE 61; RESP 18; TEMP 98; O2SAT 99
[2023-02-12] MEDS: InsuLIN REG 1unit/0.01ml Soln (100units/ml) SC SCH ×3 (06:44→17:39)
[2023-02-12] MEDS: ACCU-CHEK COMFORT CURVE STRIP VI SCH ×3 (06:44→16:56)
[2023-02-12 09:00] VITALS: BP 132/68; PULSE 69; RESP 14; TEMP 97.8; O2SAT 99
[2023-02-12] MEDS: METOPROLOL TARTRATE 25 MG TAB PO SCH (09:49)
[2023-02-12] MEDS: AMIODARONE HCL 200 MG TAB PO SCH (09:49)
[2023-02-12] MEDS: HEPARIN SODIUM (PORCINE) 5000 UNITS/ML 1ML VIAL SC SCH (09:58)
[2023-02-12] MEDS ORDERED: INSLANTI SC (14:37)
[2023-02-12] MEDS ORDERED: METO25TA36 PO (14:37)
[2023-02-12] MEDS ORDERED: AMIO200T33 PO (14:37)
[2023-02-12] MEDS ORDERED: LANC-268 XX (14:55)
[2023-02-12] MEDS ORDERED: BLOO1KIT60 XX (14:55)
[2023-02-12] MEDS ORDERED: INSU1MIS36 XX (14:55)
[2023-02-12] MEDS: SODIUM CHLORIDE 0.9% 1,000 ML IV SCH (15:45)
[2023-02-12 17:00] VITALS: BP 128/68; PULSE 66; RESP 18; TEMP 98; O2SAT 100
== END 2023-02-12 17:45 | disposition home or self-care (01) | DRG 720 ==
LOC: ER 13:45 → TELE 16:33 → ICU WEST 17:49 → TELE-CENTR 01-28 17:47 → CENTRAL 02-06 10:04
PROVIDERS: ADMIT Nurse Practitioner Acute Care; ATTEND Nurse Practitioner Acute Care
DX: A41.9 Sepsis, unspecified organism (principal); N17.0 Acute kidney failure with tubular necrosis; G93.41 Metabolic encephalopathy; E11.10 Type 2 diabetes mellitus with ketoacidosis without coma; J15.0 Pneumonia due to Klebsiella pneumoniae; R65.21 Severe sepsis with septic shock; R57.1 Hypovolemic shock; D69.6 Thrombocytopenia, unspecified; I48.91 Unspecified atrial fibrillation; N30.90 Cystitis, unspecified without hematuria; E11.22 Type 2 diabetes mellitus with diabetic chronic kidney disease; I12.9 Hypertensive chronic kidney disease with stage 1 through stage 4 chronic kidney disease, or unspecified chronic kidney disease; N18.9 Chronic kidney disease, unspecified; Z16.12 Extended spectrum beta lactamase (ESBL) resistance; E87.5 Hyperkalemia; E21.3 Hyperparathyroidism, unspecified; Z79.899 Other long term (current) drug therapy; Z86.73 Personal history of transient ischemic attack (TIA), and cerebral infarction without residual deficits; B96.4 Proteus (mirabilis) (morganii) as the cause of diseases classified elsewhere
CPT/HCPCS: 36415; 36556; 36600; 70450; 71045; 74176; 80048; 80053; 80069; 81001; 82010; 82270; 82306; 82565; 82805; 82962; 83036; 83605; 83735; 83880; 83930; 83970; 84100; 84443; 84478; 84484; 84520; 85007; 85014; 85018; 85025; 85027; 85652; 87040; 87081; 87086; 87088; 87186; 92610; 93005; 93306; 96365; 96368; 96372; 96375; 97110; 97116; 97163; 97530; G0378; J0696; J1450; J1815; J2185; J2405; J3480; J7042; J7060

== ENCOUNTER 2023-03-03 10:54 | Inpatient (IN) | payer MEDICAID ==
[~2023-03-03] VITALS: Ht 167.6 cm; Wt 56.0 kg
[~2023-03-03 10:54] MED LIST: AMIO200T33 PO; BLOO1KIT60 XX; INSLANTI SC; INSU1MIS36 XX; LANC-268 XX; METO25TA36 PO
[2023-03-03] MEDS ORDERED: SODIUM CHLORIDE 0.9% 1,000 ML IVB ONE (12:00)
[2023-03-03 12:22] LABS: Basophils # (auto) 0.1 10 ^3/uL (0-0.2); Basophils % (auto) 0.4 % (0.0-2.0); Eosinophils # (auto) 0.2 10 ^3/uL (0-0.8); Eosinophils % (auto) 1.1 % (0.0-7.0); Hematocrit 45.5 % (41.0-53.0); Hemoglobin 14.3 g/dL (13.5-17.5); Lymphocytes # (auto) 4.8 10 ^3/uL (0.4-5.4); Lymphocytes % (auto) 32.6 % (10.0-50.0); Mean Corpuscular Hemoglobin 28.1 pg (28.0-32.0); Mean Corpuscular Hgb Conc. 31.3 g/dL (32.0-36.0); Mean Corpuscular Volume 89.7 fL (80.0-100.0); Monocytes # (auto) 0.7 10 ^3/uL (0-1.3); Monocytes % (auto) 4.9 % (0.0-12.0); Nucleated Red Blood Cells % 0.1 %; Red Blood Cells 5.07 10^6/uL (4.5-5.90); Red Cell Distribution Width 15.7 % (11.8-14.3); White Blood Cell 14.8 10^3/uL (4.4-10.8)
[2023-03-03 12:40] LABS: Alanine Aminotransferase 35 U/L (7-40); Albumin 4.2 g/dL (3.2-4.8); Alkaline Phosphatase 131 U/L (46-116); Anion Gap 12 (5-15); Aspartate Aminotransferase 49 U/L (13-40); BUN/Creatinine Ratio 9.9 (10.0-20.0); Blood Urea Nitrogen 20 mg/dL (9-23); Calcium 9.8 mg/dL (8.7-10.4); Carbon Dioxide 22 mmol/L (20-30); Chloride 116 mmol/L (98-107); Glucose 272 mg/dL (74-106); Lipase 73 U/L (12-53); Magnesium 2.5 mg/dL (1.6-2.6); Potassium 4.1 mmol/L (3.5-5.1); Sodium 150 mmol/L (136-145)
[2023-03-03 12:41] LABS: Bilirubin, Total 0.3 mg/dL (0.2-1.0); Lactic Acid w/Reflex 2.5 mmol/L (0.4-2.0); Total Protein 8.5 g/dL (5.7-8.2)
[2023-03-03 14:53] LABS: Urine Amorphous Crystal FEW /hpf (None Seen); Urine Bacteria MANY /hpf (None Seen); Urine Blood Negative /uL (Negative); Urine Budding Yeast LOADED /hpf (None Seen); Urine Clarity CLOUDY (Clear); Urine Color Yellow (Yellow); Urine Mucus FEW (None Seen); Urine Protein, UAD 1+ (Negative); Urine Specific Gravity 1.017 (1.001-1.035); Urine Sperm PRESENT /hpf (None Seen); Urine Urobilinogen Normal (Negative); Urine WBC 127 /hpf (0 - 3); Urine WBC Clumps PRESENT /hpf (None Seen); Urine pH 5.5 (5.0-8.0)
[2023-03-03] MEDS ORDERED: cefTRIAXone 1GM/50ML D5W 50 ML IV ONE (15:45)
[2023-03-03] MEDS ORDERED: DEXTROSE (50%) 50ML SYRG IV PRN (17:00)
[2023-03-03] MEDS ORDERED: NITROGLYCERIN 0.4 MG SL TAB SL PRN (17:00)
[2023-03-03] MEDS ORDERED: ACETAMINOPHEN 325 MG TAB PO PRN (17:00)
[2023-03-03] MEDS ORDERED: MORPHINE SULFATE INJ 2 MG/ml SYRG IV PRN (17:00)
[2023-03-03] MEDS: ACCU-CHEK COMFORT CURVE STRIP VI SCH ×2 (18:27→22:20)
[2023-03-03] MEDS: InsuLIN REG 1unit/0.01ml Soln (100units/ml) SC SCH ×2 (18:33→22:00)
[2023-03-03 19:25] LABS: Protein, Urine 79.6 mg/dL (0.0-11.9)
[2023-03-03 19:28] LABS: Creatinine, Urine 87.72 mg/dL (30.0-125.0)
[2023-03-03] MEDS: SOD CHL 0.45% 1,000 ML IV SCH (22:20)
[2023-03-04] VITALS (9 sets, daily range): BP systolic 118–136; BP diastolic 38–67; PULSE 70–79; RESP 14–16; TEMP 96.9–99; O2SAT 95–100
[2023-03-04 01:12] LABS: Lactic Acid w/Reflex 2.2 mmol/L (0.4-2.0)
[2023-03-04] MEDS: SOD CHL 0.45% 1,000 ML IV SCH (03:00)
[2023-03-04 06:15] LABS: Basophils # (auto) 0.1 10 ^3/uL (0-0.2); Basophils % (auto) 0.5 % (0.0-2.0); Eosinophils # (auto) 0.2 10 ^3/uL (0-0.8); Eosinophils % (auto) 1.1 % (0.0-7.0); Hematocrit 38.6 % (41.0-53.0); Hemoglobin 12.1 g/dL (13.5-17.5); Lymphocytes # (auto) 3.9 10 ^3/uL (0.4-5.4); Lymphocytes % (auto) 26.1 % (10.0-50.0); Mean Corpuscular Hemoglobin 27.8 pg (28.0-32.0); Mean Corpuscular Hgb Conc. 31.3 g/dL (32.0-36.0); Mean Corpuscular Volume 88.8 fL (80.0-100.0); Monocytes # (auto) 0.9 10 ^3/uL (0-1.3); Monocytes % (auto) 5.9 % (0.0-12.0); Neutrophils % (auto) 66.4 % (37.0-80.0); Nucleated Red Blood Cells % 0.1 %; Red Blood Cells 4.34 10^6/uL (4.5-5.90); Red Cell Distribution Width 15.6 % (11.8-14.3); White Blood Cell 15.1 10^3/uL (4.4-10.8)
[2023-03-04 06:25] LABS: Alanine Aminotransferase 28 U/L (7-40); Albumin 3.4 g/dL (3.2-4.8); Alkaline Phosphatase 102 U/L (46-116); Anion Gap 9 (5-15); Aspartate Aminotransferase 65 U/L (13-40); BUN/Creatinine Ratio 10.6 (10.0-20.0); Bilirubin, Total 0.3 mg/dL (0.2-1.0); Blood Urea Nitrogen 21 mg/dL (9-23); Calcium 9.2 mg/dL (8.7-10.4); Carbon Dioxide 23 mmol/L (20-30); Chloride 122 mmol/L (98-107); Glucose 87 mg/dL (74-106); Potassium 3.7 mmol/L (3.5-5.1); Sodium 154 mmol/L (136-145); Total Protein 6.9 g/dL (5.7-8.2)
[2023-03-04] MEDS: InsuLIN REG 1unit/0.01ml Soln (100units/ml) SC SCH ×4 (06:30→22:00)
[2023-03-04] MEDS: ACCU-CHEK COMFORT CURVE STRIP VI SCH ×4 (06:30→22:00)
[2023-03-04] MEDS ORDERED: LACTATED RINGER'S 1,000 ML IV SCH ×2 (07:30→13:45)
[2023-03-04] MEDS: cefTRIAXone 1GM/50ML D5W 50 ML IV SCH (09:32)
[2023-03-04] MEDS: AMIODARONE HCL 200 MG TAB PO SCH (10:00)
[2023-03-04] MEDS: METOPROLOL SUCCINATE XL 50 MG TAB PO SCH (10:00)
[2023-03-05] VITALS (7 sets, daily range): BP systolic 135–154; BP diastolic 67–74; PULSE 74–81; RESP 17–19; TEMP 98–98.6; O2SAT 96–98
[2023-03-05] MEDS: InsuLIN REG 1unit/0.01ml Soln (100units/ml) SC SCH ×4 (07:00→21:41)
[2023-03-05] MEDS: ACCU-CHEK COMFORT CURVE STRIP VI SCH ×4 (07:00→21:41)
[2023-03-05] MEDS: cefTRIAXone 1GM/50ML D5W 50 ML IV SCH (09:46)
[2023-03-05] MEDS: LACTATED RINGER'S 1,000 ML IV SCH ×2 (09:46→22:29)
[2023-03-05] MEDS: AMIODARONE HCL 200 MG TAB PO SCH (10:00)
[2023-03-05] MEDS: METOPROLOL SUCCINATE XL 50 MG TAB PO SCH (10:00)
[2023-03-05 15:59] LABS: Chloride 118 mmol/L (98-107); Potassium 3.5 mmol/L (3.5-5.1); Sodium 150 mmol/L (136-145)
[2023-03-05 16:00] LABS: Anion Gap 10 (5-15); Carbon Dioxide 22 mmol/L (20-30)
[2023-03-05 16:01] LABS: Calcium 8.7 mg/dL (8.7-10.4)
[2023-03-05 16:05] LABS: BUN/Creatinine Ratio 9.6 (10.0-20.0); Blood Urea Nitrogen 15 mg/dL (9-23); Glucose 154 mg/dL (74-106)
[2023-03-06] VITALS (7 sets, daily range): BP systolic 136–162; BP diastolic 68–86; PULSE 61–76; RESP 16–18; TEMP 97.2–98.2; O2SAT 93–99
[2023-03-06 05:53] LABS: Chloride 114 mmol/L (98-107); Potassium 3.2 mmol/L (3.5-5.1); Sodium 148 mmol/L (136-145)
[2023-03-06 05:54] LABS: Anion Gap 10 (5-15); Carbon Dioxide 24 mmol/L (20-30)
[2023-03-06 05:55] LABS: Calcium 8.6 mg/dL (8.7-10.4)
[2023-03-06 05:59] LABS: BUN/Creatinine Ratio 7.9 (10.0-20.0); Blood Urea Nitrogen 11 mg/dL (9-23); Glucose 115 mg/dL (74-106)
[2023-03-06] MEDS: ACCU-CHEK COMFORT CURVE STRIP VI SCH ×4 (06:34→22:14)
[2023-03-06] MEDS: InsuLIN REG 1unit/0.01ml Soln (100units/ml) SC SCH ×4 (06:35→22:00)
[2023-03-06] MEDS: cefTRIAXone 1GM/50ML D5W 50 ML IV SCH (08:44)
[2023-03-06] MEDS: AMIODARONE HCL 200 MG TAB PO SCH (08:45)
[2023-03-06] MEDS: METOPROLOL SUCCINATE XL 50 MG TAB PO SCH (08:46)
[2023-03-06] MEDS: SOD CHL 0.45% 1,000 ML IV SCH (13:05)
[2023-03-06] MEDS: POTASSIUM EFFERVESENT TAB 25 MEQ PO SCH (13:06)
[2023-03-06] MEDS ORDERED: ERTAPENEM SOD INJ 1 GM in SODIUM CHL 0.9% 50 ML IV ONE (13:45)
[2023-03-07 05:00] VITALS: BP 139/69; PULSE 67; RESP 16; TEMP 98.5; O2SAT 99
[2023-03-07 06:08] LABS: Anion Gap 8 (5-15); Carbon Dioxide 25 mmol/L (20-30); Chloride 109 mmol/L (98-107); Potassium 3.6 mmol/L (3.5-5.1); Sodium 142 mmol/L (136-145)
[2023-03-07 06:09] LABS: Calcium 8.7 mg/dL (8.5-10.1)
[2023-03-07 06:14] LABS: BUN/Creatinine Ratio 6.2 (10.0-20.0); Blood Urea Nitrogen 8 mg/dL (9-23); Glucose 148 mg/dL (74-106)
[2023-03-07] MEDS: ACCU-CHEK COMFORT CURVE STRIP VI SCH ×2 (06:15→11:42)
[2023-03-07] MEDS: SOD CHL 0.45% 1,000 ML IV SCH (06:16)
[2023-03-07] MEDS: InsuLIN REG 1unit/0.01ml Soln (100units/ml) SC SCH (06:17)
[2023-03-07 08:00] VITALS: PULSE 69
[2023-03-07 09:00] VITALS: BP 141/71; PULSE 70; RESP 18; TEMP 98.6; O2SAT 100
[2023-03-07] MEDS ORDERED: ERTAPENEM SOD INJ 1 GM in SODIUM CHL 0.9% 50 ML IV SCH (10:00)
[2023-03-07] MEDS ORDERED: BACDST PO (10:07)
[2023-03-07 10:41] VITALS: BP 141/70; PULSE 70; RESP 18; TEMP 98.6; O2SAT 100
[2023-03-07] MEDS: AMIODARONE HCL 200 MG TAB PO SCH (11:24)
[2023-03-07] MEDS: METOPROLOL SUCCINATE XL 50 MG TAB PO SCH (11:39)
[2023-03-07] MEDS: POTASSIUM EFFERVESENT TAB 25 MEQ PO SCH (11:41)
== END 2023-03-07 12:42 | disposition home or self-care (01) | DRG 720 ==
LOC: ER 10:54 → TELE 16:53 → TELE-EAST 03-04 00:52
PROVIDERS: ADMIT Nurse Practitioner Family; ATTEND Family Medicine
DX: A41.51 Sepsis due to Escherichia coli [E. coli] (principal); N17.0 Acute kidney failure with tubular necrosis; G93.41 Metabolic encephalopathy; E11.10 Type 2 diabetes mellitus with ketoacidosis without coma; R65.21 Severe sepsis with septic shock; R57.1 Hypovolemic shock; L89.152 Pressure ulcer of sacral region, stage 2; N30.90 Cystitis, unspecified without hematuria; E11.65 Type 2 diabetes mellitus with hyperglycemia; B96.1 Klebsiella pneumoniae [K. pneumoniae] as the cause of diseases classified elsewhere; E86.0 Dehydration; I10 Essential (primary) hypertension; L98.429 Non-pressure chronic ulcer of back with unspecified severity; N10 Acute pyelonephritis; Z16.12 Extended spectrum beta lactamase (ESBL) resistance; E87.1 Hypo-osmolality and hyponatremia; I69.354 Hemiplegia and hemiparesis following cerebral infarction affecting left non-dominant side; Z46.6 Encounter for fitting and adjustment of urinary device; Z74.01 Bed confinement status; Z99.3 Dependence on wheelchair
CPT/HCPCS: 36415; 71045; 80048; 80053; 81001; 82570; 82962; 83036; 83605; 83690; 83735; 83930; 84156; 84300; 84484; 85025; 87040; 87086; 87088; 87186; 93005; 96365; G0378; J0696; J1335; J1815